=== PATIENT | female | born 1970 ===

== ENCOUNTER 2019-01-15 12:19 | Outpatient (REF) | payer BC, SELFPAY ==
--- NOTE | 2019-01-15 14:30 | PAPFT_PTH ---
PATIENT: ADEBAYO CLOUD LOC: [facility] U#:[id number] AGE/SX: 48/F ROOM: RE01/15/[address]: Alejandrina Gonzales : 1970 BED: DIS: 01/15/2019 SPEC #: [id number] RECD: 01/16/19 13:03 STATUS: PATRICIA REScot #: [id number] BRADLY: 01/15/19 14:[address]: Alejandrina Gonzales DEPT: [facility] Cytology RECD BY: Kimberlee Ruff Tissues: 1 - CX/ENDOCX FOR PAP SMEARS Procedures: PAP THIN PREP/[facility] Screening Comments: [id number] (CHLAMYDIA/GC)
[2019-01-17 13:02] LABS: Chlamydia Result Negative; GC Result Negative; Specimen Description SEE COMMENTS
== END 2019-01-15 12:39 ==
LOC: LBN 12:19
PROVIDERS: Visit Provider Naturopath
DX: Z12.4 Encounter for screening for malignant neoplasm of cervix (principal); Z11.51 Encounter for screening for human papillomavirus (HPV); Z11.3 Encounter for screening for infections with a predominantly sexual mode of transmission
CPT/HCPCS: 87491; 87591; 88142